=== PATIENT | male | born 1970 | race Caucasian/White ===

== ENCOUNTER 2019-09-24 16:40 | Observation (INO) | payer BC ==
[~2019-09-24] VITALS: Ht 188 cm; Wt 120.9 kg
--- NOTE | ~2019-09-24 | HEMODYNAMI ---
PATIENT:GREGORY SNEED MEDICAL RECORD: [id number] : 70 LOCATION:[address] ADMISSION DATE: 09/24/19 Generatedon:09/25/201910:40 Patient name: GREGORY SNEED Patient #: [id number] SSN: [id number] : 1970 Date of study: 09/25/2019 Page: Of Hemodynamic Procedure Report Patient Data Patient Demographics Procedure consent was obtained First Name: GREGORY Gender: Male Last Name: NEDRA : 1970 Patient #: [id number] Age: 49 year(s) Race: SSN: [id number] Additional ID: [id number] Contact details [address]: [address] [place] [address] State: [place] City: [place] Zip code: [address] Past Medical History Allergies Allergen Reaction Date Comments Reported Other allergy 09/25/2019 HYDROCHLOROTHIAZIDE Admission Admission Data Admission Date: 09/24/2019 Admission Time: 18:13 Arrival Date: 09/25/2019 Arrival Time: 0:00 Room #: D.2121 Insurance Payor: Private health insurance [facility] #: [id number] Height (in.): 74.02 BSA: 2.46 (m2) Height (cm.): 188 BMI: 34.23 (kg/m2) Weight (lbs.): 266.76 Weight (kg.): 121 Lab Results Lab Result Date: 09/25/2019 Lab Result Time: 0:00 Biochemistry Name Units Result Min Max BUN mg/dl 14 --(--*-)-- 7 18 Creatinine mg/dl 1.4 --(----)*- 0.6 1.3 eGFR ml/min 57 *-(----)-- 90 120 NONAFRICAN CBC Name Units Result Min Max Hematocrit % 53.3 --(---*)-- 42 54 Hemoglobin g/dl 18.3 --(----)*- 13.5 17.5 Procedure Procedure Types Cath Procedure Diagnostic Procedure [facility] w/Coronaries Sedation Charges Moderate Sedation up to 15 minutes PCI Procedure Coronary Stent Coronary Stent Initial Hemochron ACT Test Procedure Description Procedure Date Procedure Date: 09/25/2019 Procedure Start Time: 10:14 Procedure End Time: 10:38 Procedure Staff Name Function Florencio Murcia MD Performing Physician Bethany Carlson RN Nurse Isabel Burgos RT Scrub Beatriz Cisneros RT Monitor Indication Chest pain Procedure Data Cath Procedure Fluoroscopy Diagnostic fluoroscopy Total fluoroscopy Time: 3.4 time: 3.4 min min Diagnostic fluoroscopy Total fluoroscopy dose: 769 dose: 769 mGy mGy Contrast Material Contrast Material Type Amount (ml) Isovue 300 78 Entry Location Entry Primary Successful Side Size Upsize Upsize Entry Closure Succes sful Closure Location (Fr) 1 (Fr) 2 (Fr) Remarks Device Remarks Femoral Right 5 Fr 6 Fr Exoseal artery Short Estimated blood loss: 10 ml Diagnostic catheters Device Type Used For End Catheter Placement MULTIPACK JL 4.0 5Fr Left Coronary catheter Angiography DIAGNOSTIC JL 5 5Fr Left Coronary catheter ([id number]) Angiography MULTIPACK 3DRC 5Fr Right Coronary catheter Angiography MULTIPACK Pigtail 5 Fr LV Angiography catheter Procedure Complications No complications Procedure Medications Medication Administration Route Dosage 0.9% NaCl I.V. 100 ml/hr Oxygen etCO2 Nasal cannula 2 l/min Lidocaine 2% added to field 20 Heparin Flush Bag added to field 2 bags (1000units/500ml NS) Versed I.V. 2 mg Fentanyl I.V. 50 mcg Versed I.V. 1 mg Fentanyl I.V. 25 mcg Heparin Bolus I.V. 5000 units Integrilin (Bolus I.V. 11.3 ml 2mg/ml) Plavix P.O. 600 mg Solumedrol I.V. 125 mg Hemodynamics Rest BSA: 2.46 (m2) HGB: 18.3 (g/dl) O2 Consumption: Estimated: 293.81 (ml/min) O2 Co nsumption indexed: Estimated:119.43 (ml/min/m) Heart Rate: 69 (bpm) Pressure Samples Time Site Value (mmHg) Purpose Heart Use Rate(bpm) 10:22 LV 112/22,27 Snapshot 69 Gradients Valve Time Site Site Mean SEP/DFP Peak To Heart Use 1 2 (mmHg) (sec/min) Peak Rate (mmHg) (bpm) Aortic 10:23 LV AO 73 Snapshots Pre Cath Intra NCS Post Cath Vital Signs Time Heart Resp SPO2 etCO2 NIBP (mmHg) Rhythm Pain Sedation Rate (ipm) (%) (mmHg) Status Level (bpm) 10:01:13 72 15 99 36.7 Measuring NSR 0 (11) 10(A) , No pain 10:02:12 75 20 98 36 131/77(95) NSR 0 (11) 10(A) , No pain 10:06:39 79 25 98 29.1 120/83(98) NSR 0 (11) 10(A) , No pain 10:11:03 76 24 98 39.5 119/76(94) NSR 0 (11) 10(A) , No pain 10:16:02 72 25 97 22.4 Measuring NSR 0 (11) 10(A) , No pain 10:16:31 70 23 97 31.3 125/75(94) NSR 0 (11) 10(A) , No pain 10:20:59 72 24 98 25.3 115/66(101) NSR 0 (11) 9(A) , No pain 10:25:23 78 18 97 33.6 103/62(88) NSR 0 (11) 9(A) , No pain 10:29:43 83 20 98 40.3 107/62(82) NSR 0 (11) 10(A) , No pain 10:34:04 75 22 98 32.8 102/68(91) NSR 0 (11) 10(A) , No pain Medications Time Medication Route Dose Verified Delivered Reason Notes Effectiveness by by 9:59:35 0.9% NaCl I.V. 100 Florencio Bethany used for ml/hr TwinPrimo Carlson procedure MD ACEVEDO 9:59:42 Oxygen etCO2 2 Florencio Bethany used for Nasal l/min Twin Aldo procedure cannula MD ACEVEDO 9:59:47 Lidocaine 2% added 20ml Florencio Matias for local to vial [facility] anesthetic field MD OSCAR 9:59:51 Heparin Flush added 2 Florencio Florencio used for Bag to bags [facility] procedure (1000units/500ml field MD OSCAR NS) 10:08:43 Versed I.V. 2 mg Florencio Bethany for sedation St Primo Carlson MD RN 10:08:52 Fentanyl I.V. 50 Florencio Bowdenyla for sedation mcg St Primo Carlson MD RN 10:14:03 Versed I.V. 1 mg Florencio Daniellea for sedation St Primo Carlson MD RN 10:14:12 Fentanyl I.V. 25 Florencio Bowdenyla for sedation mcg St Primo Carlson MD RN 10:27:10 Heparin Bolus I.V. 5000 Florencio Daniellea for units St Primo Carlson anticoagulation MD ACEVEDO 10:27:19 Integrilin I.V. 11.3 Florencio Daniellea for (Bolus 2mg/ml) ml St Primo Carlson antiplatelet RN therapy 10:27:28 Plavix P.O. 600 Florencio Sims for mg St Primo Carlson antiplatelet RN therapy 10:27:35 Solumedrol I.V. 125 Florencio Daniellea Per physician mg St Primo Carlson MD clothes separator Log Time Note 9:48:30 Isabel Burgos RT(R) sent for patient. Start room use. 9:51:14 Informed consent obtained and on chart 9:52:33 Indication : Chest pain 9:52:42 Arrival Date: 09/25/2019 12:00:00 AM 9:52:48 Insurance Payor : Private health insurance 9:53:10 Patient Height : 74.02 inches 9:53:15 Patient Weight : 266.76 lbs 9:53:27 Procedure Status Urgent Heart Cath (IP). 9:53:33 Time tracking: Regular hours (M-F 7:00 - 5:00) 9:53:40 Plan of Care:Hemodynamics will remain stable., Cardiac rhythm will remain stable., Comfort level will be maintained., Respiratory function will remain adequate., Patient/ family verbilizes understanding of procedure., Procedure tolerated without complication., Recovers from procedure without complications.. 9:54:44 Lab Result : eGFR NONAFRICAN 57 ml/min 9:54:44 Lab Result : Hemoglobin 18.3 g/dl 9:54:44 Lab Result : BUN 14 mg/dl 9:54:44 Lab Result : Creatinine 1.4 mg/dl 9:54:44 Lab Result : Hematocrit 53.3 % 9:55:22 Patient received from Med II to CCL 1 Alert and oriented. Tansferred to table in Supine position. 9:55:23 Warm blankets applied, and familia hugger turned on for patient comfort. 9:55:24 Correct patient and procedure confirmed by team. 9:55:25 ECG and BP/O2 sat monitors applied to patient. 9:55:38 H&P Date Dictated: 09/25/2019 Within 30 days and on chart., ER History on chart.. 9:55:40 Pre-procedure instructions explained to patient. 9:55:41 Pre-op teaching completed and patient verbalized understanding. 9:55:44 Family unavailable. 9:55:47 Patient NPO since Midnight. 9:56:13 Patient allergic to Other allergyHYDROCHLOROTHIAZIDE 9:56:17 Is the patient allergic to Iodine/contrast media? No. 9:56:21 Was the patient premedicated? Yes 9:56:23 Is patient on blood thinner?Yes 9:56:32 ACC The patient was administered the following blood thiners within the last 24 hours: ACCLovenox 9:59:25 Vital chart was started 9:59:35 0.9% NaCl 100 ml/hr I.V. was administered by Bethany Carlson RN; used for procedure; Verbal order read back and verified. 9:59:42 Oxygen 2 l/min etCO2 Nasal cannula was administered by Bethany Carlson RN ; used for procedure; Verbal order read back and verified. 9:59:47 Lidocaine 2% 20ml vial added to field was administered by Florencio Murcia MD; for local anesthetic; Verbal order read back and verified. 9:59:51 Heparin Flush Bag (1000units/500ml NS) 2 bags added to field was administered by Florencio Murcia MD; used for procedure; Verbal order read back and verified. 10:03:07 Baseline sample Acquired. 10:03:12 Rhythm: sinus rhythm 10:03:15 Full Disclosure recording started 10:03:16 - 10:03:21 Patient diabetic? No. 10:03:30 ----Pre-sedation anethsthesia assessment.---- 10:03:34 Previous problem with sedation/anesthesia? No ? 10:03:36 Snore? Yes 10:03:39 Sleep apnea? No 10:03:42 Deviated septum? Unknown 10:03:44 Opens mouth fully? Yes 10:03:47 Sticks out tongue? Yes 10:03:51 Airway obstruction? No ? 10:03:55 Dentures? No ? 10:04:02 Pre procedure: right dorsailis pedis pulse 2+ Normal; easily identifiable; not easily obliterated 10:04:14 IV patent on arrival in left forearm with 0.9% NaCl at [facility]. 10:04:20 Lab results completed and on chart. 10:04:29 Stress Test: no; N/A ? 10:04:38 Right groin area was prepped with chlora-prep and draped in sterile fashion 10:04:41 Alarms reviewed by R. N. 10:04:42 Sharps counted by scrub and verified by R.N. 10:07:43 Physician arrived 10:07:44 --------ALL STOP TIME OUT------ 10:07:44 Final Timeout: patient, procedure, and site verified with staff and physician. All members of the team are in agreement. 10:07:48 Right groin site verified by team. 10:07:54 Fire Safety Assessment: A--An alcohol-based skin anteseptic being used preoperatively., C--Open oxygen or nitrous oxide is being used., D--An ESU, laser, or fiber-optic light is being used. 10:07:59 Physical assessment completed. ASA score P 2 - A patient with mild systemic disease as per Florencio Murcia MD. 10:08:06 3a) 45-59 Moderately reduced kidney function. 10:08:12 Maximum allowable contrast dose (3.7 X eGFR X 0.75)158 ml. 10:08:19 Sedation plan: IV Moderate Sedation Medication:Versed, Fentanyl 10:08:28 Use device set Femoral Dx 10:08:30 ACIST Syringe (75461) opened to sterile field. 10:08:31 Bag Decanter () opened to sterile field. 10:08:31 Medline Cath Pack ([id number]) opened to sterile field. 10:08:33 ACIST Hand Control (89954) opened to sterile field. 10:08:34 ACIST Manifold (07505) opened to sterile field. 10:08:35 DIAGNOSTIC Multipack 5Fr catheter set (SD5426) opened to sterile field. 10:08:36 Tegaderm 4 x 4 (1626W) opened to sterile field. 10:08:39 SHEATH 5FR Sparta (AXP435) opened to sterile field. 10:08:40 EMERALD Guide Wire (691-981) opened to sterile field. 10:08:43 Versed 2 mg I.V. was administered by Bethany Carlson RN; for sedation; Verbal order read back and verified. 10:08:52 Fentanyl 50 mcg I.V. was administered by Bethany Carlson RN; for sedation ; Verbal order read back and verified. 10:09:23 Baseline sample Acquired. 10:11:28 Risk of Mortality: 3.5 10:11:33 Risk of blood transfusion: 0.1 10:11:38 Risk of CECY: 6.1 10:14:03 Versed 1 mg I.V. was administered by Bethany Carlson RN; for sedation; Verbal order read back and verified. 10:14:12 Fentanyl 25 mcg I.V. was administered by Bethany Carlson RN; for sedation ; Verbal order read back and verified. 10:14:20 Zero performed for pressure channel P1 10:14:44 Procedure started. 10:14:51 Local anesthetic to right femoral artery with Lidocaine 2% by Florencio Tillman MD.INITIAL ACCESS ONLY 10:15:55 A 5 Fr sheath was inserted into the Right Femoral artery 10:17:11 A MULTIPACK JL 4.0 5Fr catheter was advanced over the wire and used for Left Coronary Angiography. 10:18:32 Catheter removed. 10:19:02 A DIAGNOSTIC JL 5 5Fr catheter ([id number]) was advanced over the wire and used for Left Coronary Angiography. 10:20:01 LCA angiography performed. 10:20:07 Injector settings: Ml/sec: 3, Volume: 6, 10:20:54 Catheter removed. 10:21:04 A MULTIPACK 3DRC 5Fr catheter was advanced over the wire and used for Right Coronary Angiography. 10:22:16 RCA angiography performed. 10:22:21 Injector settings: Ml/sec: 3, Volume: 6, 10:22:25 Catheter removed. 10:22:32 A MULTIPACK Pigtail 5 Fr catheter was advanced over the wire and used for LV Angiography. 10::44 Injector settings: Ml/sec: 5, Volume: 15, 10:22:51 LV gram done using JOSE 10:23:10 LV hemodynamics recorded. 10:23:20 EF : 55 % 10:23:29 Catheter removed. 10:23:33 Proceeding to intervention. 10:23:37 SHEATH 6FR Sparta (BMY528) opened to sterile field. 10:23:38 INFLATOR Merit BasixCompak (VL6308) opened to sterile field. 10:23:40 WHISPER 300cm guide wire ([id number]) opened to sterile field. 10:23:43 GUIDE 6FR EBU 4.0 guide catheter ([id number]) opened to sterile field. 10:24:27 Sheath upsized to a 6 Fr Short. 10:24:33 ACC Pre-intervention TRUDY Flow is 3. 10:24:58 6 Fr EBU4 guide catheter was inserted over the wire 10:25:09 WHISPER 300 wire advanced. 10:26:39 Pre PCI Site: [place] pLAD has 80% stenosis. 10:27:10 Heparin Bolus 5000 units I.V. was administered by Bethany Carlson RN; for anticoagulation; Verbal order read back and verified. 10:27:19 Integrilin (Bolus 2mg/ml) 11.3 ml I.V. was administered by Bethany giron RN; for antiplatelet therapy; Verbal order read back and verified. 10:27:28 Plavix 600 mg P.O. was administered by Bethany Carlson RN; for antiplatelet therapy; Verbal order read back and verified. 10:27:35 Solumedrol 125 mg I.V. was administered by Bethany Carlson RN; Per physician; Verbal order read back and verified. 10:30:08 Place stent Inflation Number: 1 A KAILEY OTW 3.5 x 12 stent ([id number]) was prepped and advanced across the Prox LAD . The stent was deployed at 14 GUY for 0:30 (min:sec) . 10:30:34 Post PCI Site: [place] pLAD has 0% stenosis. 10:30:44 ACC Post-intervention TRUDY Flow is 3. 10:31:01 Stent catheter was removed intact over wire. 10:31:04 Wire removed. 10:31:04 Guide catheter removed. 10:31:19 EXOSEAL 6Fr (EX600) opened to sterile field. 10:31:53 Sheath removed intact; hemostasis achieved with Exoseal to the Right Femoral artery. 10:31:57 Procedure ended.(Physican Out) 10:33:08 Contrast amount:Isovue 300 78ml. 10:33:12 Maximum allowable dose exceeded? No. 10:33:24 Fluoroscopy time 03.40 minutes. 10:33:35 Flurop Dose total: 769 10:33:35 Fluoroscopy dose: 769 mGy 10:33:46 Dose Area Product 12867 mGy/cm. 10:33:49 Sharps counted by scrub and verified by R.N. 10:33:51 Insertion/operative site no bleeding no hematoma. 10:33:56 Post-op/insertion site Right Femoral artery dressed using a 4 x 4 and Tegaderm. 10:34:01 Post right femoral artery:stable 10:34:08 Post-procedure physical assessment completed. ASA score P 2 - A patient with mild systemic disease as per Florencio Murcia MD. 10:34:12 Post procedure rhythm: unchanged. 10:34:16 Estimated blood loss: 10 ml 10:34:17 Post procedure instruction explained to patient.Patient verbalizes understanding. 10:34:19 Patient needs reinforcement of post procedure teaching. 10:35:08 Procedure type changed to Cath procedure, Diagnostic procedure, [facility], C w/Coronaries, Sedation Charges, Moderate Sedation up to 15 minutes, PCI procedure, Coronary Stent, Coronary Stent Initial, Hemochron ACT Test 10:35:13 Procedure and supply charges have been captured, reviewed, submitted an d are correct. 10:35:29 ACT drawn and resulted at 187 seconds. (normal therapeutic range 180-24 0 seconds). 10:36:03 Procedure Complication : No complications 10:36:16 Vital chart was stopped 10:36:22 [facility] Findings: MVD- PCI performed (see procedure note) 10:36:23 Operative report dictated upon procedure completion. 10:36:24 See physician's report for complete and final results. 10:36:27 Report given to [facility]. 10:36:34 Patient transfered to [facility] with Bed. 10:38:03 Procedure ended. 10:38:03 Full Disclosure recording stopped 10:38:14 ACC-PCI Only Patient was given prescriptions, or instructed by Florencio Murcia MD to start/continue the following medications upon discharge: Plavix 10:39:01 End room use (Document Last) 10:40:09 Beatriz Cisneros RT(R) (CV) was relieved by Bethany Carlson RN as monitoring person Intervention Summary Intervention Notes Time ActionType Lesion and Equipment Action# Pressure Duration Attributes Used 10:30:[address] Place stent Prox LAD KAILEY OTW 3.5 1 14 00:30 x 12 stent ([id number]) Device Usage Item Name Manufacture Quantity Catalog Hospital Part Current Mini mal Lot# / Number Charge Number Stock Stock Serial# Code ACIST Syringe Acist 1 41220 391234 991013 098775 20 (85321) Medical Systems Inc Bag Decanter Microtek 1 2001S 045670 16115 630971 5 (2001S) Medical Inc. Medline Cath Medline 1 [id number] 573103 13076 876151 5 Pack ([id number]) ACIST Hand Acist 1 44945 668387 059172 124786 5 Control Medical (98617) Systems Inc ACIST Acist 1 57909 687087 924683 059161 5 Manifold Medical (38412) Systems Inc DIAGNOSTIC Cardinal 1 BE7785 723296 10588 060777 30 Multipack 5Fr Health catheter set (YS5438) Tegaderm 4 x 3M 1 1626W 754418 526717 573305 5 4 (1626W) SHEATH 5FR Terumo 1 OLJ046 685743 600872 318780 5 Sparta (JZO881) EMERALD Guide Cardinal 1 502-455 831047 302937 637428 5 Wire Health (502-455) MULTIPACK JL Cardinal 1 255109 5 4.0 5Fr Health catheter DIAGNOSTIC JL Cardinal 1 667012J 808855 961157 238031 5 5 5Fr Health catheter (802562U) MULTIPACK Cardinal 1 552607 5 3DRC 5Fr Health catheter MULTIPACK Cardinal 1 441766 5 Pigtail 5 Fr Health catheter SHEATH 6FR Terumo 1 SDY297 420116 149524 543598 40 Sparta (ALE039) INFLATOR Merit 1 RK6226 986724 684601 095996 15 [facility] BasixCompak (JD2225) WHISPER 300cm Dailey 1 [id number] 178414 411404 415479 5 guide wire Vascular (6353907II) GUIDE 6FR EBU Medtronic 1 [id number] 636863 66213 605846 1 4.0 guide catheter (BH8ROZ32) KAILEY OTW 3.5 Medtronic 1 [id number] 828448 7088393 968437 5 [id number] x 12 stent ([id number]) EXOSEAL 6Fr Cardinal 1 EX600 071709 565646 377404 10 (EX600) Health Signature Audit [place] Stage Time Signature Unsigned Intra-Procedure 09/25/2019 Beatriz 10:39:42 AM Amelia RT(R) (CV) Intra-Procedure 09/25/2019 Florencio Daniel 10:40:33 AM Primo OSCAR [facility] [address] [place] [address]
[2019-09-24] MEDS ORDERED: LISINOPRIL40 MG (16:45)
[2019-09-24 17:01] LABS: BASOPHILS 0.7 % (0-2); EOSINOPHILS 5.3 % (0-7); HEMATOCRIT 53.3 % (42.0-54.0); HEMOGLOBIN 18.3 g/dL (13.5-17.5); IMMATURE GRANULOCYTES 0.1 % (0-5); LYMPHOCYTES 36.3 % (15-50); MCH 31.7 pg (26.0-34.0); MCHC 34.3 g/dL (31.0-37.0); MCV 92.2 fL (80.0-100.0); MEAN PLATELET VOLUME 9.6 fL (7.4-10.4); MONOCYTES 10.9 % (2-11); NEUTROPHILS 46.7 % (40-80); PLATELET COUNT 248 10x3/uL (130-400); RBC 5.78 10x6/uL (4.20-6.10); RDW 13.7 % (11.5-14.5); WBC 7.3 10x3/uL (4.8-10.8)
[2019-09-24 17:11] LABS: CALC OSMOLALITY 276 mosm/kg (275-300); CARBON DIOXIDE 30.2 mmol/L (21.0-32.0); CHLORIDE - SERUM 99 mmol/L (98-107); CREATININE - SERUM 1.4 mg/dL (0.6-1.3); GLUCOSE 94 mg/dL (74-106); POTASSIUM - SERUM 4.2 mmol/L (3.5-5.1); SODIUM 138 mmol/L (136-145); UREA NITROGEN 14 mg/dL (7-18); eGFR NON AFRICAN AMERICAN 57 mL/min (90-120)
[2019-09-24 17:26] LABS: ALBUMIN 3.8 g/dL (3.4-5.0); ALKALINE PHOSPHATASE 62 U/L (30-120); ALT (SGPT) 51 U/L (10-68); BILIRUBIN - TOTAL 0.77 mg/dL (0.2-1.3); CKMB 4.2 U/L (0.0-3.6); CREATINE KINASE 514 UL (21-232); PRO BNP 17 pg/mL (0-125); PROTEIN - SERUM 7.2 g/dL (6.4-8.2)
[2019-09-24 17:28] LABS: TROPONIN-I < 0.017 ng/mL (0.000-0.060)
[2019-09-24 18:36] VITALS: BP 150/88
[2019-09-24 18:49] LABS: CKMB 3.8 U/L (0.0-3.6); CREATINE KINASE 487 UL (21-232); TROPONIN-I < 0.017 ng/mL (0.000-0.060)
--- NOTE | 2019-09-24 18:57 | NUR ---
PT ARIVED VIA WHEELCHIAR TO ROOM. ALERT AND ORIENTED, UP AD BRANDEN.
--- NOTE | 2019-09-24 23:00 | NUR ---
PT RESTING WITH NO DISTRESS. HAVE EXPLAINED PLAN OF CARE. PT REPORTING NO CHEST PAIN. SR PER TELEMETRY.
[2019-09-25 00:15] VITALS: BMI 34.2
[2019-09-25 01:18] LABS: CKMB 3.2 U/L (0.0-3.6); CREATINE KINASE 373 UL (21-232)
[2019-09-25 01:24] LABS: TROPONIN-I < 0.017 ng/mL (0.000-0.060)
--- NOTE | 2019-09-25 02:27 | NUR ---
FOLLOWING TROPONINS, ALL HAVE BEEN WNL. PT RESTING WITH NO REPORTS OF CHEST PAIN.
--- NOTE | 2019-09-25 03:57 | NUR ---
PT RESTING WITH EYES CLOSED. RESP EVEN AND REGULAR. SR UP X2, CALL LIGHT WITHIN REACH.
[2019-09-25 04:00] VITALS: BP 110/68
--- NOTE | 2019-09-25 07:08 | NUR ---
PT C/O HEADACHE AND THAT HE HAD REQUESTED A NICOTINE PATCH ON ADMIT. THIS NURSE NOT AWARE OF REQUESTED NICOTINE PATCH. BEDSIDE ROUNDS BEING MADE SO DAY NURSE WILL FOLLOW UP WITH MD FOR NICOTINE PATCH AND TYLENOL FOR HEADACHE. PT DID HAVE MORPHINE LAST PM AND NEVER REQUESTED ANY FURTHER MEDS FROM THIS NURSE AFTER THAT WAS GIVEN.
[2019-09-25 07:26] LABS: CKMB 2.8 U/L (0.0-3.6); CREATINE KINASE 300 UL (21-232); TROPONIN-I < 0.017 ng/mL (0.000-0.060)
--- NOTE | 2019-09-25 07:29 | NUR ---
PT AWAKE AND ORIENTED AND DISGRUNTLED. WANTS A NICTINE PATCH, TYLENOL. C/O HEADACHE AND GENERALIZED IRRATABILITY. C/O NOT GETTING ANY SLEEP LAST NIGHT. CL IN REACH, SRX2.
[2019-09-25 09:22] VITALS: BP 127/71
[2019-09-25 09:33] LABS: BASOPHILS 0.5 % (0-2); EOSINOPHILS 4.6 % (0-7); IMMATURE GRANULOCYTES 0.3 % (0-5); LYMPHOCYTES 36.5 % (15-50); MCH 31.4 pg (26.0-34.0); MCHC 33.3 g/dL (31.0-37.0); MCV 94.1 fL (80.0-100.0); MEAN PLATELET VOLUME 10.4 fL (7.4-10.4); MONOCYTES 10.1 % (2-11); PLATELET COUNT 257 10x3/uL (130-400); RBC 5.42 10x6/uL (4.20-6.10); WBC 7.9 10x3/uL (4.8-10.8)
[2019-09-25 09:44] LABS: ANION GAP 11.5 mmol/L (8-16); CALCIUM 8.7 mg/dL (8.5-10.1); CARBON DIOXIDE 28.2 mmol/L (21.0-32.0); CHOL - HDL RATIO 5.1 ratio (2.3-4.9); CREATININE - SERUM 1.4 mg/dL (0.6-1.3); POTASSIUM - SERUM 4.7 mmol/L (3.5-5.1)
--- NOTE | 2019-09-25 09:52 | NUR ---
PT TAKEN PRESBYTERIAN CLERGY.
[2019-09-25 10:43] VITALS: Ht 188 cm; Wt 120.9 kg
--- NOTE | 2019-09-25 10:46 | NUR ---
RECIEVED REORT FROM CATHLAB. 1 STNT TO THE LAD.
--- NOTE | 2019-09-25 11:09 | NUR ---
PT BACK FROM ATOMIC PHYSICS PROFESSOR. TOLERATING WELL
[2019-09-25] MEDS ORDERED: PLAVIX75 MG PO (11:46)
--- NOTE | 2019-09-25 12:00 | MORECARE ---
CASE MANAGEMENT DISCHARGE SUMMARY PATIENT: GREGORY SNEED UNIT: [id number] ADM DATE: 09/24/19 AGE: 49 : 70 SEX: M ROOM/BED: D.2121 AUTHOR: ALFONSO STUART PHYSICIAN: REFERRING PHYSICIAN: HERMILO BEGUM MD DATE OF SERVICE: 09/25/19 Discharge Plan Patient Name: GREGORY SNEED [facility] [facility] 1970 Planned Disposition: Home Anticipated Discharge Date: 09/25/19 Discharge Date: Expected LOS: 1 Initial Reviewer: [email or web address] Initial Review Date: 09/24/2019 Generated: 09/25/19 12:59 pm Comments DCP- Discharge Planning Updated by [email or web address]: Debra Vargas on 09/25/19 10:[address] CM met with patient regarding DC needs. Patient states his will assist him upon DC and he has no other needs. [facility]. Spouse will drive him home. Patient Name: GREGORY SNEED Page [id number] at 1200 All edits/amendments must be made on the electronic document DICTATION DATE: 09/25/19 1159 TON CONTAINER FILLER: HUMPHREY 09/25/19 1159 RPT#: [id number] DC DATE: STATUS: ADM IN [facility] [address] [place] [address] END OF REPORT
--- NOTE | 2019-09-25 13:55 | NUR ---
I have reviewed this patient and I concur with the Shift Assessment completed by the Licensed Practical Nurse today this shift.
--- NOTE | 2019-09-25 14:45 | NUR ---
PT ESCORTED OUT POV, DRIVING.
--- NOTE | 2019-09-26 08:57 | MORECARE ---
CASE MANAGEMENT DISCHARGE SUMMARY PATIENT: GREGORY SNEED UNIT: [id number] ADM DATE: 09/24/19 AGE: 49 : 70 SEX: M ROOM/BED: D.2121 AUTHOR: ALFONSO STUART PHYSICIAN: REFERRING PHYSICIAN: HERMILO BEGUM MD DATE OF SERVICE: 09/26/19 Discharge Plan Patient Name: GREGORY SNEED Facility: [facility]:[place] : 1970 Planned Disposition: Home Anticipated Discharge Date: 09/25/19 Discharge Date: 09/25/2019 Expected LOS: 1 Initial Reviewer: [email or web address] Initial Review Date: 09/24/2019 Generated: 09/26/19 9:56 am Comments DCP- Discharge Planning Updated by [email or web address]: Debra Vargas on 09/25/19 10:[address] CM met with patient regarding DC needs. Patient states his will assist him upon DC and he has no other needs. [facility]: [facility] [address] Spouse will drive him home. Last DP export: 09/25/19 11:00 am Patient Name: GREGORY SNEED Page [id number] at 0857 All edits/amendments must be made on the electronic document DICTATION DATE: 09/26/1956 PICC NURSE: HUMPHREY 09/26/19 0856 RPT#: [id number] DC DATE:09/25/19 STATUS: DIS IN [facility] [address] [place] [address] END OF REPORT
--- NOTE | 2019-09-27 08:16 | OP ---
PATIENT NAME: GREGORY SNEED MEDICAL RECORD: [id number] :70 LOCATION:D.M2 D.2121 ADMISSION DATE:09/24/19 SURGEON: GABRIELE CULP MD DATE OF OPERATION: 09/25/2019 PROCEDURE: Left heart catheterization, selective coronary angiography, right femoral artery approach. CATHETERS: A 5-Iraqi sheath, 5/4 left and right Sherry, 5/4 pig. The procedure was well tolerated. The patient returned to the arce. Sheath removed. ExoSeal device placed. FINDINGS: Left ventriculography in 30-degree JOSE view: Normal wall motion. Normal systolic function. CORONARY ANATOMY: LEFT MAIN: Left main is free of disease. LAD: LAD has 80% stenosis proximally proximal to the septal and first diagonal. CIRCUMFLEX: Left dominant system, free of disease. RIGHT CORONARY ARTERY: Rudimentary, free of disease. PLAN: Intervention to LAD momentarily. DESCRIPTION OF PROCEDURE: A 5-Iraqi sheath was exchanged for a 6-Iraqi sheath. A XB LAD guiding catheter provided excellent guide catheter support followed by a 300 cm Whisper wire placed across the tightly occluded LAD down this portion of vessel. Stent deployed was a 3.5 x 12 Homero drug-eluting stent up to 14 atmospheres for 45 seconds. Final angiography shows excellent resolution of 80% stenosis, no significant residual. Nice pumping in the distal vasculature. TRUDY flow was 3 throughout the procedure. Heparin and Integrilin were used during the case. Sheath was closed with ExoSeal device. TRANSINT:[id number] Voice Confirmation ID: [id number] DOCUMENT ID: [id number] GABRIELE CULP MD at 0816 CC: [id number] DICTATION DATE: 09/25/19 1043 FLAME BURNER: 09/25/19 1735 DIS IN 09/25/19 [facility] [address] [place] [address]
--- NOTE | 2019-09-27 08:16 | CN ---
PATIENT NAME:GREGORY SNEED MEDICAL RECORD: [id number] : 70 LOCATION:D. D.2121 ADMIT DATE: 09/24/19 ACCOUNT: [id number] CONSULTING PHYSICIAN: GABRIELE CULP MD REFERRING PHYSICIAN: HERMILO BEGUM MD DATE OF CONSULTATION: 09/25/2019 HISTORY OF PRESENT ILLNESS: A 49-year-old gentleman with a history of hypertension, smoking, strong family history of coronary artery disease, admitted with acute coronary syndrome, symptomology began approximately 1 week ago with dyspnea on exertion, chest tightness and pressure radiating to the throat, had progressed fairly rapidly with rest symptomology occurring yesterday, presented to the ER. We are asked to see him concerning his cardiovascular status. PAST MEDICAL HISTORY: Includes history of hypertension. MEDICATIONS: Lisinopril 40 mg p.o. every day. ALLERGIES: HCTZ. SOCIAL HISTORY: Smokes about a pack a day. Social drinker. No illicit drug use. No set exercise program. 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 REVIEW OF SYSTEMS: The patient reports easy bruising but reports no swollen glands. The patient reports no fever, no night sweats, no significant weight gain, no significant weight loss. No significant exercise tolerance. The patient reports no dry eyes, no irritation, no vision change. Patient reports no difficulty hearing and no ear pain. Patient reports no frequent nose bleeds or nose and sinus problems. Patient reports on arm pain on exertion. No shortness of breath while lying down. No history of heart murmur. Patient reports no cough, no wheezing or coughing up blood. Patient reports no abdominal pain, no vomiting. Normal appetite. No diarrhea and not vomiting blood. No nausea and no constipation. Patient reports no incontinence. No difficulty urinating. No hematuria. No increased frequency. Patient reports no muscle aches. No weakness, no arthralgias, no back pain. No swelling of the extremities. Patient reports no abnormal mole, no jaundice, no rashes. Reports no loss of consciousness. No weakness and no numbness. No seizures, dizziness, or headaches. The patient reports no depression, no sleep disturbance, feeling safe in a relationship and no alcohol abuse. Patient reports on fatigue. Reports no runny nose or sinus pressure. No itching, no hives, and no frequent sneezing. PHYSICAL EXAMINATION: GENERAL: Pleasant gentleman, in no acute distress, appears stated age. VITAL SIGNS: Blood pressure 127/71, pulse 76 and regular. HEENT: Normocephalic, atraumatic. NECK: No bruits noted. HEART: Regular, I-II/ systolic ejection murmur. LUNGS: Fair air excursion. ABDOMEN: Soft, nontender. EXTREMITIES: Pulses well preserved, 2+ with no edema. NEUROLOGIC: Grossly intact. CONSULT REPORT [id number] GREGORY SNEED IMPRESSION: Class III angina/acute coronary syndrome, multiple risk factors. PLAN: For angiography, intervention based on above. TRANSINT:[id number] Voice Confirmation ID: [id number] DOCUMENT ID: [id number] GABRIELE CULP MD at 0816 CC: [id number] DICTATION DATE: 09/25/19 0951 POLYSOMNOGRAPHY TECH: 09/25/19 1616 DIS IN 09/25/19 [id number] [place] [address]
== END 2019-09-25 15:51 | disposition home or self-care (01) ==
LOC: D.ER 16:40 → D.M2 18:13 → OBSVTIME 18:45 → D.M2 09-25 15:51
PROVIDERS: Family Medicine; Internal Medicine Interventional Cardiology; ADMIT Internal Medicine Nephrology; ATTEND Internal Medicine Nephrology
DX: I24.9 Acute ischemic heart disease, unspecified (principal); I25.119 Atherosclerotic heart disease of native coronary artery with unspecified angina pectoris; I10 Essential (primary) hypertension; F17.203 Nicotine dependence unspecified, with withdrawal